=== PATIENT | male | born 1995 | race Caucasian/White ===

== ENCOUNTER 2019-01-25 08:50 | Day surgery (SDC) | payer OTHER ==
[~2019-01-25] VITALS: Ht 165.1 cm; Wt 54.0 kg
[~2019-01-25 08:50] MED LIST: ACETAMINOPHEN 500 MG TABLET PO PRN; CHOL400T6 PO; HYDROmorphone 2 MG/ML VIAL IV PRN; IV RINGERS,LACTATED 1000ML 1,000 ML IV SCH; MORPHINE SULFATE 2 MG/ML VIAL. IV PRN; ONDANSETRON PF 4 MG/2 ML VIAL. IV PRN; PROCHLORPERAZINE 10 MG/2 ML VIAL. IV PRN; fentaNYL PF VIAL 100 MCG/2 ML VIAL IV PRN
[2019-01-25] MEDS ORDERED: MIDAZOLAM HCL/PF 2 MG/2 ML VIAL. ONE (10:29)
[2019-01-25] MEDS ORDERED: PROPOFOL 20 ML IV ONE (10:41)
[2019-01-25] MEDS ORDERED: LIDOCAINE 2% PF 5 ML VIAL. ONE (10:41)
[2019-01-25] MEDS ORDERED: fentaNYL PF VIAL 100 MCG/2 ML VIAL ONE (10:41)
[2019-01-25] MEDS ORDERED: ONDANSETRON PF 4 MG/2 ML VIAL. ONE (10:41)
[2019-01-25] MEDS ORDERED: DEXAMETHASONE SOD PHOS 4 MG/ML VIAL ONE (10:41)
[2019-01-25] MEDS ORDERED: BUPIVACAINE-EPI 0.25%-1:200000 MPF 30 ML VIAL. INJ ONE (11:00)
--- NOTE | 2019-01-25 11:12 | PDOC4 ---
Operative Note Operative Note Date: 01/25/2019 Preoperative diagnosis: Left axillary abscess Postoperative diagnosis: Same Procedure: Incision and drainage of axillary abscess Surgeon: Luís Specimen: Cultures Dictation: Patient is 23-year-old male who's had enlarging masses left axilla for several weeks painful. Procedure of incision and drainage was explained to the patient in detail risks benefits were also discussed including bleeding infection alternatives to this procedure also discussed with the patient who seemed to understand and gave both verbal and written consent had procedure performed. Patient was taken to operating room placed in supine position general anesthesia was initiated once patient was sleep and intubated his left axilla was prepped and draped usual sterile fashion using ChloraPrep and area over the mass was injected with quarter percent Marcaine with epinephrine incision was made with 15 blade scalpel was copious amounts of purulent material were expre ssed and suctioned from the area cultures were also taken for aerobic and anaerobic. Wound was then irrigated was copious amounts of normal saline. Wound was then packed with iodoform Nu Gauze 4 x 4's Medipore tape were applied as dressing. Patient was awakened and bated in the operating room taken to recovery in stable condition all sponge instrument needle counts listed as correct estimated blood loss 5 milliliters AJAY WARD MD Jan 25, 2019 11:12
--- NOTE | 2019-01-25 11:14 | DISCH ---
DISCHARGE INSTRUCTIONS Condition on Discharge Condition on Discharge: Stable Activity After Discharge Activity Instructions for Disc: No restrictions Diet after Discharge Diet after Discharge: Regular Wound Incision Care Other wound/incision instructi: May shower 24 hours, wound needs to be packed daily Contacting the after DC Call your doctor for: If your condition worsens Follow-Up Follow up with: Dr. Ward in 1 week AJAY WARD MD Jan 25, 2019 11:14
[2019-01-25] MEDS ORDERED: OXYC-325 PO (11:43)
[2019-01-25] MEDS ORDERED: oxyCODONE/APAP 5/325 1 TAB TABLET PO ONE ×2 (11:45)
[2019-01-25 12:15] VITALS: BP 97/60
== END 2019-01-25 13:15 | disposition home or self-care (01) ==
LOC: SURG 08:50
PROVIDERS: ATTEND Surgery
DX: L02.412 Cutaneous abscess of left axilla (principal); R59.0 Localized enlarged lymph nodes; Z79.899 Other long term (current) drug therapy
CPT/HCPCS: 10060; 87071; 87075; A7015; J0690; J1100; J2001; J2250; J2405; J2704; J3010